=== PATIENT | female | born 1955 ===

== ENCOUNTER 2024-06-22 04:58 | Day surgery (SDC) | payer OTHER ==
[2024-06-19 13:56] LABS: INR 1.04; PARTIAL THROMBOPLASTIN TIME 25.1 SECONDS (22.0-34.0); PROTHROMBIN TIME 11.3 SECONDS (9.0-11.5)
[2024-06-19 13:58] VITALS: BP 128/56
[~2024-06-22] VITALS: Ht 154.9 cm; Wt 56.7 kg
[~2024-06-22 04:58] MED LIST: DRAMAMINE LESS25 MG PO; JENTADUETO 2.51 EACH PO; TOPROL XL50 M1 PO; ZOCOR20 MG PO
[2024-06-22] MEDS ORDERED: BUPIVACAINE HCL 30 ML VIAL IJ ONE (08:15)
[2024-06-22] MEDS ORDERED: LIDOCAINE HCL 1%/EPINEPHRINE 20ML VIAL IJ ONE (08:15)
[2024-06-22] MEDS ORDERED: POVIDONE-IODINE 118 ML BOTT TOP ONE (08:15)
[2024-06-22] MEDS ORDERED: DIBUCAINE 30 GM TUBE RECTAL ONE (08:15)
[2024-06-22] MEDS ORDERED: HEMOSTATIC MATRIX 1 KIT KIT TOP ONE (08:15)
[2024-06-22] MEDS ORDERED: METRONIDAZOLE/SODIUM CHLORIDE 500 MG/100 ML PIGGYBACK IV ONE (08:15)
[2024-06-22] MEDS ORDERED: levoFLOXacin IN DEXTROSE 5 % 5 MG/ML PIGGYBAG IV ONE (08:15)
[2024-06-22] MEDS ORDERED: OXYCODONE HCL5 MG PO (08:40)
[2024-06-22] MEDS ORDERED: TAMSULOSIN HCL 0.4 MG CAP PO ONE (08:45)
== END 2024-06-22 13:55 | disposition home or self-care (01) ==
LOC: CIR.AMB 04:58
PROVIDERS: ATTEND Surgery
DX: K64.2 Third degree hemorrhoids (principal); K64.5 Perianal venous thrombosis; Z88.0 Allergy status to penicillin; Z88.2 Allergy status to sulfonamides